=== PATIENT | male | born 1955 | race Caucasian/White ===

== ENCOUNTER 2022-03-03 07:41 | Outpatient (CLI) | payer OTHER, SELFPAY ==
--- NOTE | ~2022-03-03 | US_ITS ---
EXAMINATION: US aorta [facility] scr[facility] DATE: 03/03/2022 08:14 INDICATION: Abdominal aortic aneurysm screening with risk factors of smoking and diabetes TECHNIQUE: Grayscale, color Doppler, and pulsed Doppler images of the aorta and common iliac arteries were obtained. COMPARISON: None. FINDINGS: The proximal aorta measures 2.6 cm. The mid aorta measures 1.8 cm. The distal aorta measures 1.8 cm. The right common iliac artery measures 1.4 cm. The left common iliac artery measures 1.3 cm. IMPRESSION: 1. Normal caliber abdominal aorta Reviewed, dictated and finalized at location A. RSIONAL THERAPIST'S ASSISTANT
== END 2022-03-03 07:42 | disposition home or self-care (01) ==
PROVIDERS: PCP Family Medicine; Visit Provider Nurse Practitioner Family
DX: Z87.891 Personal history of nicotine dependence (principal)
CPT/HCPCS: 76706

== ENCOUNTER 2024-08-11 12:51 | Emergency (ER) | payer OTHER, SELFPAY ==
[2024-08-11 13:00] VITALS: BP 133/66; PULSE 79; RESP 16; TEMP 36.2; O2SAT 98
--- NOTE | 2024-08-11 14:08 | ED.GENADULT ---
HPI - General Adult General Chief complaint: Skin/Abscess/Foreign Body Stated complaint: Rash Source: patient Mode of arrival: ambulatory Limitations: no limitations History of Present Illness HPI narrative: Patient presents for evaluation of a rash to the right forearm, symptom onset 1 week ago. Symptoms were initially present in the wrist but rash migrated up the forearm. No new lotions, soaps, detergents or topical products. He denies associated pain or pruritis. He has been exposed to poison [place] in the past but has never had an allergic reaction to it. He tried using hydrocortisone cream OTC which has helped it from getting worse. He notices improvement when he uses it, but thinks he needs something stronger. Related Data Home Medications ?Medication ?Instructions ?Recorded ?Confirmed ?Last Taken ?Type aspirin 81 mg tablet,delayed 81 mg PO DAILY 07/30/20 07/05/24 Unknown History release multivitamin 1 tablet PO DAILY 08/09/22 07/05/24 Unknown History omega 6-rfs-hib-fish oil 100 1 cap PO DAILY 04/13/24 07/05/24 Unknown History mg-160 mg-1,000 mg capsule (Fish Oil) insulin glargine 100 unit/mL (3 unit subcut 08/11/24 Unknown History mL) subcutaneous pen (Lantus Solostar U-100 Insulin) Allergies Allergy/AdvReac Type Severity Reaction Status Date / Time Penicillins Allergy Intermediate Unknown Verified 08/11/24 13:12 Review of Systems Review of Systems: CONSTITUTIONAL: Denies fever, chills, or sweats. EYES: Denies visual changes, redness, or discharge. ENT: Denies rhinorrhea, congestion, sore throat, or otalgia. CARDIOVASCULAR: Denies chest pain, palpitations, or edema. RESPIRATORY: Denies cough or dyspnea. GASTROINTESTINAL: Denies abdominal pain, nausea, vomiting, or diarrhea. GENITOURINARY: Denies dysuria or hematuria. SKIN:Reports rash to right forearm. Denies associated pruritis MUSCULOSKELETAL: Denies back pain, joint pain, or myalgia. NEUROLOGIC: Denies headache, numbness, dizziness, or weakness. PSYCHIATRIC: Denies anxiety or depression. [facility] Past Medical History Medical History Dyslipidemia Hypertension Seasonal allergies Type 2 diabetes mellitus without complications Surgical History Surgical History History of cataract surgery 2012 - b/l Family History Family History Father Stomach cancer Diabetes mellitus Mother Thyroid disorder Sibling Diabetes mellitus Hypertension Social History Social History (Updated 04/13/24 @ 14:05 by Betty Price MA) Social History: Caffeine- daily Smoking packs per day: 1 Smoking cigarettes per day: 20.0 Years smoked: 30 Smoking pack-years: 30.00 Smoking status: Current some day smoker Tobacco type: cigarettes Alcohol intake: current Drinks per week: 1 Alcohol use details: beer/scotch 1 glass per month Substance use: never Substance use type: does not use Do You Feel Safe in your Home?: Yes Lack of Transportation: No Lack of Food: Never True Current Housing: I Have Housing Concerned About Future Housing: No Difficulty Paying Gas/Electric Bills: No Difficulty Paying for Meds: No Currently Unemployed: No Education: Master's Degree or Higher Difficulty w/ Childcare or Family Care: No Living arrangements: with family Spiritual care concerns: No Exam Narrative: GENERAL: Well-appearing, well-nourished, and in no acute distress. HEAD: Normocephalic, atraumatic. EYES: PERRLA and EOMI. ENT: Nares clear, no rhinorrhea or epistaxis. Mucous membranes moist. Oropharynx without tonsillar hypertrophy exudate or other lesions. Bilateral TMs pearly dorsey nonbulging NECK: Supple. No adenopathy or masses. No carotid bruits or JVD CHEST: Clear to auscultation. No respiratory distress. No wheezes rales or rhonchi HEART: Regular rate and rhythm. No murmur heard. Normal peripheral pulses. ABDOMEN: Soft, nontender, nondistended, normal active bowel sounds. EXTREMITIES: Normal range of motion. No edema. SKIN: There are patchy areas of erythema to right forearm. Skin is warm and dry. NEURO: No focal deficits. Alert and oriented x3. PSYCH: Normal mood and affect. Course Course Emergency Course: This is a 69-year-old male that presented for evaluation of a rash to the right forearm. No pain to suggest herpes zoster. No itching to suggest fungal infection. His symptoms are not getting worse with use of hydrocortisone cream. Will change to kenalog and add cephalexin as this appears to be a folliculitis. He will follow-up with his primary care provider on Tuesday go to the emergency department for worsening symptoms. Patient in agreement with plan of care. Level of Care: Express Care Visit Vital Signs Vital signs: Vital Signs Temperature 36.2 C L 08/11/24 13:00 Pulse Rate 79 08/11/24 13:00 Respiratory Rate 16 08/11/24 13:00 Blood Pressure 133/66 08/11/24 13:00 Pulse Oximetry 98 08/11/24 13:00 Temperature 36.2 C L 08/11/24 13:00 Pulse Rate 79 08/11/24 13:00 Respiratory Rate 16 08/11/24 13:00 Blood Pressure 133/66 08/11/24 13:00 Pulse Oximetry 98 08/11/24 13:00 Medical Decision Making Vital Signs Vital Signs: Vital Signs Temperature 36.2 C L 08/11/24 13:00 Pulse Rate 79 08/11/24 13:00 Respiratory Rate 16 08/11/24 13:00 Blood Pressure 133/66 08/11/24 13:00 Pulse Oximetry 98 08/11/24 13:00 Temperature 36.2 C L 08/11/24 13:00 Pulse Rate 79 08/11/24 13:00 Respiratory Rate 16 08/11/24 13:00 Blood Pressure 133/66 08/11/24 13:00 Pulse Oximetry 98 08/11/24 13:00 Discharge Plan Discharge Clinical Impression: Folliculitis Patient Disposition: Home Condition: Stable Instructions: Antibiotic Form, Folliculitis (ED) Patient Language: Slovak Prescriptions: New cephalexin 500 mg tablet 500 mg PO Q6H Qty: 40 0RF triamcinolone acetonide 0.1 % cream 1 applic topical QID Qty: 80 0RF No Action insulin glargine [Lantus Solostar U-100 Insulin] 100 unit/mL (3 mL) insulin pen SUBCUT aspirin 81 mg tablet,delayed release (DR/EC) 81 mg PO DAILY multivitamin Tablet 1 tablet PO DAILY Fish Oil 100-160-1,000 mg capsule 1 cap PO DAILY insulin glargine-yfgn [Semglee(insulin glarg-yfgn)Pen] 100 unit/mL (3 mL) insulin pen 40 unit subcut DAILY Qty: 45 1RF (DME) pen needle, diabetic [BD Daniela 2nd Gen Pen Needle] 32 gauge x 5/32 needle See Rx Instructions .ROUTE .COMPLEX Qty: 100 2RF Dose Instruction: USE DIRECTED Rx Instructions: USE DIRECTED dapagliflozin propanediol 10 mg tablet 10 mg PO DAILY Qty: 90 1RF fluticasone propionate [Flonase Allergy Relief] 50 mcg/actuation spray,suspension 2 spray intranasal DAILY Qty: 48 1RF Rx Instructions: administer into each nostril glimepiride 4 mg tablet 4 mg PO BID Qty: 180 1RF Ozempic 1 mg/dose (4 mg/3 mL) pen injector 1 mg subcut WEEKLY Qty: 3 1RF lisinopril 10 mg tablet 10 mg PO DAILY Qty: 90 1RF atorvastatin 20 mg tablet 20 mg PO QHS Qty: 90 1RF bupropion HCl (smoking deter) 150 mg tablet extended release 12 hr 150 mg PO BID Qty: 180 0RF Rx Instructions: Take 1 tab daily for 4 days then take 1 tab twice a day. Follow-up/Referrals: Sebastián Tyler MD [Physician] - Time of Disposition: 13:52
== END 2024-08-11 13:54 | disposition home or self-care (01) ==
PROVIDERS: Emergency Provider Nurse Practitioner
DX: L73.9 Follicular disorder, unspecified (principal); E78.5 Hyperlipidemia, unspecified; I10 Essential (primary) hypertension; E11.9 Type 2 diabetes mellitus without complications; F17.210 Nicotine dependence, cigarettes, uncomplicated; Z79.4 Long term (current) use of insulin
CPT/HCPCS: 99213; G0463

== ENCOUNTER 2024-08-25 09:49 | Emergency (ER) | payer OTHER, SELFPAY ==
[2024-08-25 09:58] VITALS: BP 136/72; PULSE 77; RESP 16; TEMP 36.2; O2SAT 98
--- NOTE | 2024-08-25 10:36 | ED_ITS ---
HPI - Skin/Abscess/Foreign Bdy General Chief complaint: Skin/Abscess/Foreign Body Stated complaint: Right Arm Skin Irritation Time Seen by Provider: 08/25/24 10:34 Source: patient Mode of arrival: ambulatory Limitations: no limitations History of Present Illness HPI narrative: 69 y/o male presented for c/o rash to the right forearm, x3 weeks. Pt was seen for this 2 weeks ago, given triamcinolone and cephalexin, but reports no change. Pt denies itching or pain. Denies changes to soap, detergent, lotion, or any other exposures. No one else in the house or any contacts with similar symptoms. Related Data Home Medications ?Medication ?Instructions ?Recorded ?Confirmed ?Last Taken ?Type aspirin 81 mg tablet,delayed 81 mg PO DAILY 07/30/20 07/05/24 Unknown History release multivitamin 1 tablet PO DAILY 08/09/22 07/05/24 Unknown History omega 3-orw-thb-fish oil 100 1 cap PO DAILY 04/13/24 07/05/24 Unknown History mg-160 mg-1,000 mg capsule (Fish Oil) insulin glargine 100 unit/mL (3 unit subcut 08/11/24 Unknown History mL) subcutaneous pen (Lantus Solostar U-100 Insulin) Allergies Allergy/AdvReac Type Severity Reaction Status Date / Time Penicillins Allergy Intermediate Unknown Verified 08/25/24 10:14 Review of Systems Review of Systems: CONSTITUTIONAL: Denies body aches, fever, chills, or sweats. EYES: Denies visual changes, redness, or discharge. ENT: Denies rhinorrhea, congestion CARDIOVASCULAR: Denies chest pain, palpitations, or edema. RESPIRATORY: Denies cough or dyspnea. GASTROINTESTINAL: Denies abdominal pain, nausea, vomiting, or diarrhea. SKIN: per HPI MUSCULOSKELETAL: Denies back pain, joint pain, or myalgia. NEUROLOGIC: Denies headache, numbness, tingling, or weakness. [facility] Past Medical History Medical History Dyslipidemia Hypertension Seasonal allergies Type 2 diabetes mellitus without complications Surgical History Surgical History History of cataract surgery 2012 - /l Family History Family History Father Stomach cancer Diabetes mellitus Mother Thyroid disorder Sibling Diabetes mellitus Hypertension Social History Social History Social History: Caffeine- daily Smoking packs per day: 1 Smoking cigarettes per day: 20.0 Years smoked: 30 Smoking pack-years: 30.00 Smoking status: Current some day smoker Tobacco type: cigarettes Alcohol intake: current Drinks per week: 1 Alcohol use details: beer/scotch 1 glass per month Substance use: never Substance use type: does not use Do You Feel Safe in your Home?: Yes Lack of Transportation: No Lack of Food: Never True Current Housing: I Have Housing Concerned About Future Housing: No Difficulty Paying Gas/Electric Bills: No Difficulty Paying for Meds: No Currently Unemployed: No Education: Master's Degree or Higher Difficulty w/ Childcare or Family Care: No Living arrangements: with family Spiritual care concerns: No Comments At time of signature, I have reviewed and agree with nursing past medical, surg ical, social and family history unless otherwise noted. Please see nursing chart for further information. There is no relevant family history pertinent to the presenting complaint Exam Narrative: GENERAL: Well-appearing HEAD: Normocephalic, atraumatic. EYES: conjunctivae clear, and EOMI. ENT: Mucous membranes moist. Oropharynx without edema, erythema or lesions. NECK: Supple. No lymphadenopathy CHEST: Clear to auscultation. HEART: Regular rate and rhythm. SKIN: Warm, dry. Right forearm with scattered raised erythematous patches extending from wrist to elbow, various sizes, nontender, no fluctuance or drainage. NEURO: Alert and oriented x3. Course Course Emergency Course: Patient is aware of diagnosis, understands and agrees to treatment plan. Anticipatory guidance given. Patient agrees to follow-up as directed and is aware of reasons to seek care at the emergency department. Portions of this record may have been created with voice recognition software Level of Care: Express Care Visit Vital Signs Vital signs: Vital Signs Temperature 97.2 F L 08/25/24 09:58 Pulse Rate 77 08/25/24 09:58 Respiratory Rate 16 08/25/24 09:58 Blood Pressure 136/72 08/25/24 09:58 Pulse Oximetry 98 08/25/24 09:58 Temperature 97.2 F L 08/25/24 09:58 Pulse Rate 77 08/25/24 09:58 Respiratory Rate 16 08/25/24 09:58 Blood Pressure 136/72 08/25/24 09:58 Pulse Oximetry 98 08/25/24 09:58 Reviewed MDM - Skin/Abscess/Foreign Bdy MDM Narrative Medical decision making narrative: Discussed physical exam findings. Reviewed RX, pt will monitor blood glucose levels. Advised supportive measures and signs/symptoms to go to the ER. Pt is appropriate for outpt treatment and f/u. Differential Diagnosis Differential diagnosis: Likely abscess of skin or subcutaneous tissue, viral exanthem, dermatophytosis, urticaria, herpes zoster, cellulitis, eczema, insect bites, impetigo and contact dermatitis Discharge Plan Discharge Clinical Impression: Dermatitis Patient Disposition: Home Condition: Stable Instructions: Antibiotic Form, Contact Dermatitis (ED) Additional Instructions: Take steroids and Pepcid as directed. Benadryl every 8 hours as needed if you develop itching Cool compresses to the sites of itching, avoid hot water. Avoid scratching to reduce the risk of infection Follow up with your primary care provider as needed in 1 week Go to the ER for worsening symptoms or concerns (lip, tongue, throat swelling/itching, trouble breathing etc) Patient Language: Senegalese Prescriptions: New famotidine [Pepcid] 40 mg tablet 40 mg PO DAILY Qty: 10 0RF methylprednisolone [Medrol (Mohsen)] 4 mg tablets,dose pack See Rx Instructions .ROUTE .COMPLEX Qty: 21 0RF Rx Instructions: orally per package directions No Action insulin glargine [Lantus Solostar U-100 Insulin] 100 unit/mL (3 mL) insulin pen SUBCUT triamcinolone acetonide 0.1 % cream 1 applic topical QID Qty: 80 0RF aspirin 81 mg tablet,delayed release (DR/EC) 81 mg PO DAILY multivitamin Tablet 1 tablet PO DAILY Fish Oil 100-160-1,000 mg capsule 1 cap PO DAILY insulin glargine-yfgn [Semglee(insulin glarg-yfgn)Pen] 100 unit/mL (3 mL) insulin pen 40 unit subcut DAILY Qty: 45 1RF (DME) pen needle, diabetic [BD Daniela 2nd Gen Pen Needle] 32 gauge x 5/32 needle See Rx Instructions .ROUTE .COMPLEX Qty: 100 2RF Dose Instruction: USE DIRECTED Rx Instructions: USE DIRECTED dapagliflozin propanediol 10 mg tablet 10 mg PO DAILY Qty: 90 1RF fluticasone propionate [Flonase Allergy Relief] 50 mcg/actuation spray,suspension 2 spray intranasal DAILY Qty: 48 1RF Rx Instructions: administer into each nostril glimepiride 4 mg tablet 4 mg PO BID Qty: 180 1RF Ozempic 1 mg/dose (4 mg/3 mL) pen injector 1 mg subcut WEEKLY Qty: 3 1RF lisinopril 10 mg tablet 10 mg PO DAILY Qty: 90 1RF atorvastatin 20 mg tablet 20 mg PO QHS Qty: 90 1RF bupropion HCl (smoking deter) 150 mg tablet extended release 12 hr 150 mg PO BID Qty: 180 0RF Rx Instructions: Take 1 tab daily for 4 days then take 1 tab twice a day. Follow-up/Referrals: Jodie Prince MD [Primary Care Provider] - Time of Disposition: 10:46
== END 2024-08-25 10:47 | disposition home or self-care (01) ==
PROVIDERS: Emergency Provider Nurse Practitioner Family; PCP Family Medicine
DX: L30.9 Dermatitis, unspecified (principal); F17.210 Nicotine dependence, cigarettes, uncomplicated; E11.9 Type 2 diabetes mellitus without complications; Z79.4 Long term (current) use of insulin; Z79.84 Long term (current) use of oral hypoglycemic drugs; Z79.85 Long-term (current) use of injectable non-insulin antidiabetic drugs; I10 Essential (primary) hypertension; E78.5 Hyperlipidemia, unspecified; Z79.82 Long term (current) use of aspirin
CPT/HCPCS: 99213; G0463

== ENCOUNTER 2024-10-23 15:50 | Outpatient (CLI) | payer OTHER, SELFPAY ==
--- NOTE | ~2024-10-23 | CT_ITS ---
EXAMINATION: CT lung screening DATE: 10/23/2024 16:39 INDICATION: Personal history of nicotine dependence TECHNIQUE: Computed tomography (CT) of the chest was performed without intravenous contrast. The dose-length product was 142.13 mGy-cm. Automated exposure control and iterative reconstruction technique were employed. COMPARISON: None FINDINGS: Heart size normal. There is mild atherosclerosis. No significant pleural or pericardial effusion. There is a right renal cyst. No thoracic lymphadenopathy. There is bilateral lower lobe atelectasis. No pulmonary nodules. No endobronchial lesions. No pneumothorax. IMPRESSION: 1. Lung-RADS category 1: Negative. Continue annual screening with noncontrast low-dose chest CT in 12 months. Reviewed, dictated and finalized at location [facility]. IMPRESSION: 1. Lung-RADS category 1: Negative. Continue annual screening with noncontrast l ow-dose chest CT in 12 months.
--- OUTSIDE RECORDS SUMMARY | 2024-10-23 15:55 | XMS_ITS | Clinical Summary ---
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 Gender Identity Not on file Sexual Orientation Not on file Plan of Treatment Health Maintenance Due Date Last Done Comments Hepatitis C Virus (HCV) Screening 1955 TdaP Immunization 1955 Cologuard 2001 Colonoscopy 2001 Colorectal Cancer Screening 2001 Immunochemical Fecal Occult Blood 2001 Pneumococcal Immunization (5 0+ years) (1 of 1 - PCV) 2006 Zoster Immunization (1 of 2) 2006 SARS-COV-2 Immunization (1 - season) 2023 Influenza Immunization (#1) 2024 092 , 11/08/2013 Respiratory Syncytial Virus (RSV) Immunization (Adult) (1 - 1-dose 75+ series) 2031 Hepatitis B Immunization Aged Out No longer eligible based on patient's age to complete this topic Human Papillomavirus (HPV) Immunization Aged Out No longer eligible b ased on patient's age to complete this topic Meningococcal Immunization (ACWY) Aged Out No longer eligible b ased on patient's age to complete this topic Rotavirus Immunization Aged Out No lo nger eligible based on patient's age to complete this topic
--- OUTSIDE RECORDS SUMMARY | 2024-10-23 15:55 | XMS_ITS | Clinical Summary ---
Author Organization [facility] [address] [place] [id number] Care Team Providers Care Boilermaker Apprentice Name Role Phone Odin Zacarias MD Primary Care Provider [phone] Allergies Active Allergy Reactions Criticality Noted Date Comments Penicillins Rash Medium 09/17/2019 Medications lisinopriL (PRINIVIL,ZEST RIL) 10 mg tablet TAKE 1 TABLET BY MOUTH ONCE DAILY FOR 90 DAYS 0 Active aspirin 81 mg enteric coated tablet Take 81 mg by mouth daily Active pen needle, diabetic (BD Daniela 2nd Gen Pen Needle) 32 gauge x needleIndicati ons:Type 2 diabetes mellitus with hyperglycemia, without long-term current use of insulin ([facility]) One each daily for insulin administration 100 each 11 0 Active dapagliflozin (FARXIGA) 10 mg tabletIndicati ons:type 2 diabetes mellitus Take 1 tablet (10 mg total) by mouth daily 30 tablet 5 1 Active insulin degludec (TRESIBA) 200 unit/mL (3 mL) pen for injectionIndic ations:Type 2 diabetes mellitus with hyperglycemia, with long-term current use of insulin (HCC) Inject 0.2 mL (40 Units total) under the skin daily 6 mL 5 1 Active insulin degludec (TRESIBA) 200 unit/mL (3 mL) pen for injection Inject 0.2 mL (40 Units total) under the skin daily Sample lot [id number] exp 01/20/2022 x 3 pens 3 pen 1 Active dapagliflozin (Farxiga) 10 mg tablet Take 1 tablet (10 mg total) by mouth daily Sample lot [id number] exp 11/20/2022 x4 bxs=28 tablets 28 tablet 1 Active glimepiride (AMARYL) 4 mg tabletIndicati ons:Type 2 diabetes mellitus with hyperglycemia, without long-term current use of insulin (HCC) TAKE 1 TABLET BY MOUTH TWICE DAILY WITH MEALS 60 tablet 1 Active metFORMIN (GLUCOPHAGE) 1,000 mg tabletIndicati ons:Type 2 diabetes mellitus with hyperglycemia, with long-term current use of insulin (HCC) TAKE 1 TABLET BY MOUTH TWICE DAILY WITH MEALS 60 tablet 1 Active Active Problems Problem Noted Date Diagnosed Date Class 1 obesity due to exces s calories with serious comorbidity and body mass index (BMI) of 32.0 to 32.9 in adult 01/21/2020 Assessment & Plan (05/26/2020 1:00 PM CDT): Chronic, worsening Discussed about healthy lifestyle habits advise to work on healthy diet, avoid processed foods , increase vegetables and protein and cut back on carb portions and also avoid fruit juices and regular soda and desserts Increase physical activity , recommend at least 150 min of aerobic activity per week and include resistance training 2 x weekly Assessment & Plan (01/21/2020 3:53 PM VINYL INSTALLER): Chronic, worsening Discussed about healthy lifestyle habits advise to work on healthy diet, avoid processed foods , increase vegetables and protein and cut back on carb portions and also avoid fruit juices and regular soda and desserts Increase physical activity , recommend at least 150 min of aerobic activity per week and include resistance training 2 x weekly Type 2 diabetes mellitus wit h hyperglycemia, with long-term current use of insulin 06/11/2019 Assessment & Plan (05/26/2020 12:57 PM CDT): Chronic, uncontrolled, worsening A1c today - 8.7 % - C/w Metformin and glimepiride - stop levemir - start Tresiba 40 units SQ daily - start taking Farxiga 10 mg oral daily - keep up good hydration - work on diet and exercise - keep checking blood sugars at home Counseled on diet and exercise Daily foot care Explained sick day rules - make eye exam appt - follow up in 3 months Assessment & Plan (01/21/2020 3:52 PM VINYL INSTALLER): Chronic, uncontrolled, improving slowly A1c today - 8.0 % Advised to increase Lantus to 40 units SQ daily Continue rest all other meds Counseled on diet and exercise Daily foot care Explained sick day rules Follow up in 3 months Assessment & Plan (09/17/2019 12:31 PM CDT): Chronic, uncontrolled, worsening HbA1c - 9.9 % - counseled on diet and exercise - keep taking Metformin 1000 mg oral twice daily with meals - increase Glimepirde to 4 mg oral twice daily with meals - start Lanuts or Basaglar insulin - inject Subcutaneous 16 units Daily in morning before breakfast Increase by 2 units SQ every week until your morning blood sugars are less than 120 - start checking blood sugars atleast twice daily - before breakfast and before dinner - follow up in 8 weeks with blood sugar log Assessment & Plan (06/11/2019 10:31 AM CDT): Chronic, uncontrolled Recent A1c 04/2019 - 10.3 % - discussed about DM type 2, - patho physiology, short and fdc complications of uncontrolled DM, diet and exercise , importance on of BS monitoring, medications options - discussed goal BS and A1c targets - advise to start checking BS - before Meals and bedtime - advise to work on healthy diet, avoid processed foods , increase vegetables and protein and cut back on carb portions and also avoid fruit juices and regular soda and desserts - Advise to continue to take Metformin - start taking Glimepiride 4 mg oral daily with breakfast If in 2-3 weeks your fasting blood sugars are over 150, start taking Glimepiride 1/2 tab with dinner , If still Your fasting blood sugars in next 2-3 weeks are not below 150, you can increase to one full ab with dinner - keep working on portion control diet - increase physical activity as tolerated - keep home blood pressure monitoring - daily foot care -follow up in 3 months Hypertension associated with diabetes 06/11/2019 Assessment & Plan (05/26/2020 12:57 PM CDT): Chronic, Improving control Continue current medication regimen Low salt diet Assessment & Plan (01/21/2020 3:50 PM VINYL INSTALLER): Chronic, Improving control Continue current medication regimen Low salt diet Assessment & Plan (09/17/2019 12:32 PM CDT): Chronic, Improving control Continue current medication regimen Low salt diet Assessment & Plan (06/11/2019 10:31 AM CDT): BP today slightly above ga[place] Advise pt to do home Bp checks and based on that will further adjust her BP pills if needed Advised low salt diet Hyperlipidemia associated with type 2 diabetes frederick tan 06/11/2019 Assessment & Plan (05/26/2020 12:59 PM CDT): nutritional counseling provided Reviewed lipid panel test results today - high TG Pt had a very big meal yesterday night - for easter Recheck in future Assessment & Plan (01/21/2020 3:50 PM VINYL INSTALLER): on Fenofibrate nutritional counseling provided Assessment & Plan (09/17/2019 12:32 PM CDT): on Fenofibrate nutritional counseling provided Will recheck in next visit Assessment & Plan (06/11/2019 10:32 AM CDT): Reviewed pt recent outside lab results High TG Recently pt was started on Fenofibrate nutritional counseling provided Will recheck in next visit Medical History Medical History Date Comments Type 2 diabetes mellitus Hypertension Hyperlipidemia Covid-19 Family History Medical History Relation Name Comments Cancer Father Diabetes Father Hypertension Father No Known Problems Mother Diabetes Sister Hypertension Sister Relation Name Status Comments Father Mother Alive Sister Social History Tobacco Use Types Packs/Day Years Used Date Smoking Tobacco: Former Smokeless Tobacco: Never Alcohol Use Standard Drinks/Week Comments Yes 0 (1 standard drink = 0.6 oz pur e alcohol) PHQ-2 Answer Date Recorded PHQ-2 Total Score (If total score is 3 or more points, staff should administer the PHQ-9) 0 05/26/2020 Personal Safety Answer Date Recorded Getting School Help Needed Not on file 04/17 Sex and Gender Information Value Date Recorded Sex Assigned at Not on file Legal Sex Male 11:43 PM VINYL INSTALLER Gender Identity Not on file Sexual Orientation Not on file Obstetrics History Last Filed Vital Signs Vital Sign Reading Time Taken Comments Blood Pressure 122/80 05/26/2020 9:38 AM CDT Pulse 75 05/26/2020 9:38 AM CDT Temperature 36.7 C (98.1 F) 06/11/2019 9:11 AM CDT Respiratory Rate 18 05/26/2020 9:38 AM CDT Oxygen Saturation - - Inhaled Oxygen Concentration - - Weight 99.2 kg (218 lb 12.8 oz) 05/26/2020 9:38 AM CDT Height 175.3 cm (5' 9) 05/26/2020 9:38 AM CDT Body Mass Index 32.31 05/26/2020 9:38 AM CDT Plan of Treatment Not on file Insurance [facility] Care Teams Boilermaker Apprentice Relationship Specialty Start Date End Date Odin Zacarias MD [facility] [place] [address] PCP - General Family Medicine 05/22/19
== END 2024-10-23 15:51 | disposition home or self-care (01) ==
PROVIDERS: PCP Nurse Practitioner Family; Visit Provider Nurse Practitioner Family
DX: Z12.2 Encounter for screening for malignant neoplasm of respiratory organs (principal); Z87.891 Personal history of nicotine dependence
CPT/HCPCS: 71271